=== PATIENT | male | born 1960 | race Caucasian/White ===

== ENCOUNTER 2017-12-17 20:52 | Emergency (ER) | payer BC ==
[~2017-12-17] VITALS: Ht 182.9 cm; Wt 103.4 kg
[~2017-12-17 20:52] MED LIST: ALBUTEIN 225 GM/100 IV; ALDACTONE50 MG PO; ASPIRIN325 PO; CIPROFLOXACIN500 M1 PO; DRISDOL50000 UNIT PO; FLAGYL500 MG PO; IFEREX 150150 MG PO; IRON325 PO; LASIX 20 MG TAB20 MG PO; LASIX 40 MG TAB40 M2 PO; MINOCIN100 MG PO; MIRALAX17 GM PO; MULTIPLE VITAMIN PO; OMEPRAZOLE40 MG PO; PODIAPN CAPSUL1 EACH PO; PRENATABS FA T1 EACH PO; PROPRANOLOL 1010 MG PO; PROTONIX40 M1 PO; RISPERDAL 1 MG T1 MG PO; ROXICODONE5 M2 PO; SERTRALINE HCL50 MG PO; TESSALON PERLE100 MG PO; THIAMINE HCL100 MG PO; TRAZODONE HCL50 MG PO; VANCOMYCIN IV; VITAMIN D31000 UNI2 PO; XELODA500 MG PO; XIFAXAN550 M1 PO; ZOFRAN ODT4 MG PO
[2017-12-17] MEDS ORDERED: MS CONTIN 60 MG60 M1 (21:10)
[2017-12-17] MEDS ORDERED: GABAPENTIN 100100 MG PO (21:50)
[2017-12-17 22:10] LABS: ABSOLUTE LYMPHOCYTES 0.6 thou/uL (0.8-5.3); ABSOLUTE NEUTROPHILS 3.7 thou/uL (1.6-8.1); BASOPHILS 0.3 %; CALCIUM 8.3 mg/dL (8.5-10.1); CREATININE 0.9 mg/dL (0.6-1.3); HEMOGLOBIN 13.1 gm/dL (14.0-18.0); LYMPHOCYTES 14.8 %; MCH 32.2 pg (26.0-34.0); MCHC 33.6 g/dL (28.0-37.0); MCV 96.1 fL (80.0-100.0); MONOCYTES 0.7 %; MPV 9.6 fl. (7.2-11.1); NUCLEATED RBCS 0 /100WBC; PLATELET COUNT* 77 thou/uL (150-400); POLYS 84.2 %; POTASSIUM 3.5 mmol/L (3.5-5.1); RBC 4.06 mil/uL (4.50-6.00); RDW-CV 16.4 % (10.5-14.5); WBC 4.4 thou/uL (4.0-11.0)
[2017-12-17] MEDS ORDERED: COMPAZINE10 M2 PO (23:38)
[2017-12-18 00:05] VITALS: BP 117/68
== END 2017-12-18 00:05 | disposition home or self-care (01) ==
LOC: M.ERS 20:52
PROVIDERS: Nurse Practitioner
DX: R11.2 Nausea with vomiting, unspecified (principal); K74.60 Unspecified cirrhosis of liver; Z85.038 Personal history of other malignant neoplasm of large intestine; Z88.0 Allergy status to penicillin; Z88.1 Allergy status to other antibiotic agents; Z88.8 Allergy status to other drugs, medicaments and biological substances; Z90.49 Acquired absence of other specified parts of digestive tract

== ENCOUNTER 2018-11-17 17:28 | Emergency (ER) | payer BC ==
[~2018-11-17] VITALS: Ht 182.9 cm; Wt 104.3 kg
[~2018-11-17 17:28] MED LIST changes: +COMPAZINE10 M2 PO; +GABAPENTIN 100100 MG PO; +MS CONTIN 60 MG60 M1
[2018-11-17] MEDS ORDERED: MS CONTIN 60 MG60 M1 PO (17:43)
[2018-11-17] MEDS ORDERED: PERCOCET PO (21:51)
[2018-11-17] MEDS ORDERED: KEFLEX500 M1 PO (21:53)
[2018-11-17 21:56] LABS: ABSOLUTE EOSINOPHILS 0.1 thou/uL (0.0-0.7); ABSOLUTE LYMPHOCYTES 0.6 thou/uL (0.8-5.3); ABSOLUTE MONOCYTES 0.5 thou/uL (0.0-1.2); ABSOLUTE NEUTROPHILS 4.1 thou/uL (1.6-8.1); BASOPHILS 0.6 %; EOSINOPHILS 2.2 %; HEMATOCRIT 38.6 % (42.0-52.0); HEMOGLOBIN 13.2 gm/dL (14.0-18.0); LYMPHOCYTES 11.5 %; MCH 31.7 pg (26.0-34.0); MCHC 34.3 g/dL (28.0-37.0); MCV 92.3 fL (80.0-100.0); MONOCYTES 9.5 %; MPV 9.2 fl. (7.2-11.1); NUCLEATED RBCS 0 /100WBC; PLATELET COUNT* 89 thou/uL (150-400); POLYS 76.2 %; RBC 4.18 mil/uL (4.50-6.00); RDW-CV 15.6 % (10.5-14.5); WBC 5.3 thou/uL (4.0-11.0)
[2018-11-17 22:07] LABS: CALCIUM 8.5 mg/dL (8.5-10.1); CREATININE 0.9 mg/dL (0.6-1.3); INR 1.4; PROTIME 13.9 Seconds (9.20-11.50)
[2018-11-17 22:20] VITALS: BP 120/69
[2018-11-19] MEDS ORDERED: CIPRO500 MG PO (11:02)
[2018-11-19] MEDS ORDERED: ROXICODONE5 M2 PO (11:03)
== END 2018-11-17 22:21 | disposition home or self-care (01) ==
LOC: M.ERS 17:28
PROVIDERS: Nurse Practitioner Family
DX: S52.572A Other intraarticular fracture of lower end of left radius, initial encounter for closed fracture (principal); S52.612A Displaced fracture of left ulna styloid process, initial encounter for closed fracture; Z90.49 Acquired absence of other specified parts of digestive tract; Z85.038 Personal history of other malignant neoplasm of large intestine; Z98.890 Other specified postprocedural states; Z88.0 Allergy status to penicillin; Z88.1 Allergy status to other antibiotic agents; Z88.8 Allergy status to other drugs, medicaments and biological substances; W11.XXXA Fall on and from ladder, initial encounter; Y92.89 Other specified places as the place of occurrence of the external cause; Y93.89 Activity, other specified; Y99.8 Other external cause status

== ENCOUNTER → 2018-11-19 | Day surgery (SDC) | payer BC ==
[~2018-11-19] MED LIST changes: +CIPRO500 MG PO; +KEFLEX500 M1 PO; +MS CONTIN 60 MG60 M1 PO; +PERCOCET PO
--- NOTE | 2018-11-24 08:24 | OP ---
[address] [address] OPERATIVE REPORT Name: SAHIL MARIE Room: [facility]#: [id number] Admission: 11/19/18 Attend Phys: John Hodge DO Discharge: Date of : 62 Report #: [id number] THIS REPORT FOR: //name// CC: John Hodge Janie Colin DICTATED BY: Tenzin Cordoba DO DATE OF SERVICE: 11/19/2018 PREOPERATIVE DIAGNOSES: Frykman 8 distal radius fracture, displaced open grade 1. POSTOPERATIVE DIAGNOSES: Frykman 8 distal radius fracture, displaced open grade 1. PROCEDURE PERFORMED: Closed reduction and percutaneous pinning with application of [place] external fixator to left distal radius. SURGEON: John Hodge DO OPERATIONS DIRECTOR: Tenzin Cordoba DO ANESTHESIA: General. ESTIMATED BLOOD LOSS: 5 mL. COMPLICATIONS: None. SPECIMENS REMOVED: None. DRAINS: None. DISPOSITION: Stable to PACU. INDICATIONS FOR PROCEDURE: The patient is a pleasant 58-year-old male, who sustained a fall from approximately 4 feet off a ladder. He landed on an outstretched arm of the left upper extremity, had immediate pain and deformity. He was seen in the Emergency Department. X-rays confirmed a Frykman 8 left distal radius fracture, displaced with a focal grade 1 open injury. He was treated appropriately with irrigation and debridement in the Emergency Department, given antibiotics appropriately as well. He was seen in the clinic and padded splint was placed and then he was scheduled for an operative fixation. Given his significant medical history including colon cancer and the distal comminuted nature of the fracture, we discussed with him external fixation as well as internal fixation. Risks, benefits, complications, [address] [address] OPERATIVE REPORT Name: SAHIL MARIE Room: [facility]#: [id number] Admission: 11/19/18 Attend Phys: John Hodge DO Discharge: Date of : 62 Report #: [id number] alternatives, indications were discussed with him. He voiced understanding and wished to proceed with the procedure. DESCRIPTION OF PROCEDURE: The patient was seen in the preop holding area. Correct operative site was marked. Verbal and written consent was obtained. He was transferred to the operative suite and placed supine on the operating table with the benefit of general anesthesia by the anesthesia team. Left upper extremity was then prepped and draped in the normal sterile fashion. Timeout was performed, all in attendance in agreement with correct operative site and procedure to be performed. Fluoroscopy was used to verify pin placement for the second metacarpal. A 15-blade scalpel was used to make multiple incisions. Blunt dissection was taken with a hemostat and then our pins were placed. The distal pin was then placed after the guide was placed and the skin was incised with a 15-blade scalpel. Blunt dissection taken with a hemostat and then a second pin was placed using the guide. The depth was verified with fluoroscopy as well as placement. We then localized the radial shaft pins with the fluoroscopy. Once again, 15 blade scalpel was used to make an approximately 1.5 cm incision. Blunt dissection was taken down to the level of bone. Hemostasis was maintained with electrocautery. We then placed two pins utilizing the guide and depth was confirmed as well as placement of the fluoroscopy. Closed reduction was performed and due to the large comminuted styloid fracture, percutaneous pinning was performed with guidance with fluoroscopy. We then maintained reduction. We placed our external fixator and tightened all screws appropriately. Final x-rays were taken and saved to the chart, verifying reduction and stability of the fracture. The K-wires were trimmed to appropriate length and Jurgan Balls were placed with no tension on the skin appreciated. All incisions were then covered with Xeroform, 4 x 4s, Kerlix and Sridhar wrap. The patient was awoken from anesthesia and transferred to PACU in stable condition. All needle and scrub counts were correct at the end of the case x 2. I attest Dr. Hodge was present through all critical decision making aspects of the case. <ELECTRONICALLY SIGNED> By: John Hodge DO 11/24/18 0824 [id number] Hodge DO /nt
== END | disposition home or self-care (01) ==
LOC: M.SUR 07:32
DX: S52.592A Other fractures of lower end of left radius, initial encounter for closed fracture (principal); D64.9 Anemia, unspecified; Z88.8 Allergy status to other drugs, medicaments and biological substances; Z79.899 Other long term (current) drug therapy; Z88.0 Allergy status to penicillin; X58.XXXA Exposure to other specified factors, initial encounter; Y93.89 Activity, other specified; Y92.89 Other specified places as the place of occurrence of the external cause; Y99.8 Other external cause status